=== PATIENT | female | born 1965 | race Caucasian/White ===

== ENCOUNTER → 2020-04-13 13:08 | Outpatient (CLI) | payer OTHER, SELFPAY ==
--- NOTE | ~2020-04-13 | MM_ITS ---
EXAMINATION: MM screening [facility] w [facility] HISTORY: Screening TECHNIQUE: Craniocaudal and mediolateral oblique 3-D tomosynthesis images were obtained and synthetic 2-D images were generated. CAD analysis was submitted and interpreted. COMPARISON: Comparison to multiple prior studies sequentially, with oldest reviewed study dated 12/29. BREAST PARENCHYMAL COMPOSITION: The breasts are extremely dense, which lowers the sensitivity of mamm ography. FINDINGS: There is no evidence of suspicious mass, calcification, or architectural distortion to sugg est malignancy in either breast. There has been no suspicious interval change. IMPRESSION: 1. No mammographic evidence of malignancy. 2. Recommend routine screening mammography in one year. BI-RADS Category 1: Negative Reviewed, dictated and finalized at location A.
== END ==
PROVIDERS: Visit Provider Obstetrics & Gynecology
DX: Z12.31 Encounter for screening mammogram for malignant neoplasm of breast (principal)
CPT/HCPCS: 77063; 77067

== ENCOUNTER 2021-11-14 13:59 | Outpatient (CLI) | payer OTHER, SELFPAY ==
--- NOTE | ~2021-11-14 | NM_ITS ---
EXAMINATION: NM thyroid scan w uptake DATE: 11/15/2021 15:00 INDICATION: Thyrotoxicosis, unspecified without thyrotoxic crisis. COMPARISON: None. TECHNIQUE: 0.341 mCi I-123 was administered orally. Scintigraphic images of the thyroid gland were o btained at 24 hours. Thyroid uptake was calculated by the technologist. FINDINGS: The thyroid uptake is 19% (normal 10-30%), with the right lobe measuring 4% uptake and the left 15%. There is no focal area of decreased or increased activity to suggest hypofunctioning or hyperfunction ing nodule. IMPRESSION: 1. Normal 24-hour iodine uptake. 2. Asymmetric thyroid uptake, left greater than right. Consider correlation with ultrasound. Reviewed, dictated and finalized at location A. IMPRESSION: 1. Normal 24-hour iodine uptake. 2. Asymmetric thyroid uptake, left greater than right. Consider correlation wit h ultrasound.
== END 2021-11-14 14:00 | disposition home or self-care (01) ==
LOC: ANHIMG 14:03
PROVIDERS: PCP Family Medicine; Visit Provider Family Medicine
DX: E05.90 Thyrotoxicosis, unspecified without thyrotoxic crisis or storm (principal)
CPT/HCPCS: 78014; A9516

== ENCOUNTER 2021-11-23 16:01 | Outpatient (CLI) | payer OTHER, SELFPAY ==
--- NOTE | ~2021-11-23 | US_ITS ---
EXAMINATION: US thyroid EXAM DATE: 11/23/2021 17:22 INDICATION: E05.90 - Thyrotoxicosis, unspecified without thyrotoxic c... TECHNIQUE: Multiple grayscale and Doppler images of the thyroid were obtained (by a technologist who performed the scan) and subsequently reviewed. Individual nodules and recommendations may be reporte d in accordance with TI-RADS system as designated by the 2017 ACR White Paper TI-RADS committee. The re is no prior study for comparison. FINDINGS: The right liver lobe measures 4.4 x 1.2 x 1.6 cm, the left measuring 4.4 x 1.6 x 2.2 cm. There is rel atively homogeneous thyroid echogenicity. There are scattered thyroid nodules. There is a left thyroid lobe nodule measuring 3.6 x 2.3 x 2.4, solid (2 points), hypoechoic (2 points ), wider than tall, smooth well defined margin, containing punctate echogenic foci consistent with mi crocalcification (3 points), category TR5 for this nodule. Size and category warrants recommending u ltrasound-guided FNA. There is a right thyroid lobe nodule measuring 1.7 x 0.9 x 1.3 , mixed cystic and solid (1 point), hy poechoic (2 points), wider than tall, smooth well defined margin, without echogenic foci, category TR 3 for this nodule. IMPRESSION: Multinodular goiter; recommend ultrasound-guided FNA of the largest left thyroid lobe nod ule. Reviewed, dictated and finalized at location D. IMPRESSION: Multinodular goiter; recommend ultrasound-guided FNA of the largest left thyroid lobe nodule.
== END 2021-11-23 16:02 | disposition home or self-care (01) ==
LOC: ANHIMG 16:05
PROVIDERS: PCP Family Medicine; Visit Provider Family Medicine
DX: E05.90 Thyrotoxicosis, unspecified without thyrotoxic crisis or storm (principal); E04.2 Nontoxic multinodular goiter
CPT/HCPCS: 76536

== ENCOUNTER 2021-11-30 12:58 | Outpatient (CLI) | payer OTHER, SELFPAY ==
--- NOTE | ~2021-11-30 | US_ITS ---
EXAMINATION: US FNA w image guidance DATE: 11/30/2021 14:25 INDICATION: Nontoxic multinodular goiter TECHNIQUE: A time-out was performed to verify the patient's name, date of , and procedure to be performed . The procedure and its benefits and risks were discussed with the patient. Risks specifically discus sed included bleeding and infection. The patient understood the risks and agreed to proceed. The neck was prepped and draped in the usual sterile manner. 3 mL 1% lidocaine was used for local anesthesia . 6 passes were made with a 25G needle into the lesion. Appropriate needle location was documented with continuous sonographic guidance. The specimens were passed to the reliability technologist in the room. A sterile bandage was applied. There were no immediate complications. FINDINGS: Grayscale ultrasound images demonstrate biopsy needles advanced into a 3.4 x 1.7 x 2.3 cm solid TI RA DS 5 left thyroid mass. IMPRESSION: 1. Successful ultrasound-guided fine needle aspiration of a 3.4 cm TI RADS 5 left thyroid mass. Reviewed, dictated and finalized at location A. IMPRESSION: 1. Successful ultrasound-guided fine needle aspiration of a 3.4 cm TI RADS 5 l eft thyroid mass.
== END 2021-11-30 12:59 | disposition home or self-care (01) ==
PROVIDERS: PCP Family Medicine; Visit Provider Family Medicine
DX: E04.2 Nontoxic multinodular goiter (principal)
CPT/HCPCS: 10005; 88173; 88305

== ENCOUNTER → 2022-02-23 14:05 | Outpatient (CLI) | payer OTHER, SELFPAY ==
--- NOTE | ~2022-02-23 | MM_ITS ---
EXAMINATION: MM screening [facility] BI w [facility] HISTORY: Screening mammogram TECHNIQUE: Craniocaudal and mediolateral oblique 3-D tomosynthesis images were obtained and synthetic 2-D images were generated. CAD analysis was submitted and interpreted. COMPARISON: 04/13/2020, 02/10/2019, 08/29/2017 BREAST PARENCHYMAL COMPOSITION: The breasts are extremely dense, which lowers the sensitivity of mamm ography. FINDINGS: There is no suspicious mass, calcification, or architectural distortion to suggest malignan cy in either breast. There has been no suspicious interval change. IMPRESSION: 1. No mammographic evidence of malignancy. 2. Recommend routine screening mammography in one year. BI-RADS Category 1: Negative Reviewed, dictated and finalized at location A.
== END ==
PROVIDERS: PCP Internal Medicine; Visit Provider Obstetrics & Gynecology
DX: Z12.31 Encounter for screening mammogram for malignant neoplasm of breast (principal)
CPT/HCPCS: 77063; 77067

== ENCOUNTER 2022-07-07 09:32 | Emergency (ER) | payer OTHER, SELFPAY ==
[2022-07-07 09:46] VITALS: BP 138/87; PULSE 78; RESP 16; TEMP 36.9; O2SAT 100
--- NOTE | 2022-07-07 10:03 | ED.URI ---
HPI - URI/Sore Throat General Chief Complaint: Upper Respiratory Infection Stated Complaint: sore throat, headache, cough, runny nose Time Seen by Provider: 07/07/22 09:50 Source: patient Mode of arrival: ambulatory Limitations: no limitations History of Present Illness HPI Narrative: Ru is a 56-year-old female patient presenting to clinic today with complaints of sore throat, headache, cough, runny nose, and chills/body aches. She reports that this started on night. Denies any known exposure to anybody with COVID, flu, or strep. She did take an at-home COVID testing that was negative. MD elicited complaint: sore throat and nasal congestion Related Data Home Medications Medication Instructions Recorded Confirmed trazodone 50 mg tablet 50 mg PO QHS PRN Insomnia 10/23/21 07/07/22 Allergies Allergy/AdvReac Type Severity Reaction Status Date / Time Penicillins Allergy Unknown Unknown Verified 07/07/22 09:42 Sulfa (Sulfonamide Allergy Unknown Unknown Verified 07/07/22 09:42 Antibiotics) Review of Systems Review of Systems: Pertinent positives per HPI. Patient denies any fever, rash, visual changes, dizziness, shortness of breath, chest pain, palpitations, nausea, vomiting, diarrhea, constipation, abdominal pain, or any urinary issues. PMFSH Past Medical History Medical History Encounter for general adult medical examination without abnormal findings Encounter for screening for other metabolic disorders Exercise induced bronchospasm Hyperthyroidism without crisis Screen for colon cancer Screening for thyroid disorder Screening, lipid Family History Family History Other Heart disease Social History Social History Smoking status: Never smoker Second hand tobacco smoke exposure: No Alcohol intake: current Alcohol use details: wine/beer weekly Substance use: never Additional occupation/education comments: Associate Manager Gender identity (if verbalized by the patient): Female Comments At the time of my signature, I reviewed and agree with the nursing past medical, surgical, social, and family history. There is no relevant family history pertinent to the patient complaint. Exam Narrative: General: Well-developed, well nourished, in no apparent distress Head: Normocephalic, atraumatic Eyes: Pupils equally round and reactive to light bilaterally, EOM intact, sclera and conjunctive clear, no discharge, lids normal Ears: TMs intact and dull, ear canals clear, no drainage, grossly hearing normal. Nose: Nares patent, clear nasal discharge, no inflammation, no sinus tenderness. Mouth: Oral pharynx without lesions or masses, good dentition, MMM. Oropharynx red, postnasal drip Neck: Supple, trachea midline, no enlargement of anterior or posterior cervical nodes, no thyroid masses or goiter palpable. Cardio: Regular rate and rhythm, s1 and s2 normal, no murmur appreciated. Resp: Clear to auscultation bilaterally, no rhonchi, rales, wheezing or rubs Course Course Emergency Course: Portions of this record may have been created with voice recognition software. Level of Care: Express Care Visit Vital Signs Vital signs: Vital Signs Temperature 36.9 C 07/07/22 09:46 Pulse Rate 78 07/07/22 09:46 Respiratory Rate 16 07/07/22 09:46 Blood Pressure 138/87 07/07/22 09:46 Pulse Oximetry 100 07/07/22 09:46 Temperature 36.9 C 07/07/22 09:46 Pulse Rate 78 07/07/22 09:46 Respiratory Rate 16 07/07/22 09:46 Blood Pressure 138/87 07/07/22 09:46 Pulse Oximetry 100 07/07/22 09:46 Vital signs reviewed MDM - URI/Sore Throat MDM Narrative Medical decision making narrative: At the time of visit patient is resting comfortably on the exam table. Strep screen and influenza testing was
== END 2022-07-07 10:09 | disposition home or self-care (01) ==
PROVIDERS: Emergency Provider Nurse Practitioner Family
DX: J06.9 Acute upper respiratory infection, unspecified (principal); J02.9 Acute pharyngitis, unspecified; B34.9 Viral infection, unspecified; E05.90 Thyrotoxicosis, unspecified without thyrotoxic crisis or storm
CPT/HCPCS: 87081; 87804; 87880; 99213; G0463

== ENCOUNTER → 2023-06-27 11:52 | Outpatient (CLI) | payer OTHER, SELFPAY ==
--- NOTE | ~2023-06-27 | MM_ITS ---
EXAMINATION: MM screening [facility] BI w [facility] HISTORY: Screening mammogram TECHNIQUE: Craniocaudal and mediolateral oblique 3-D tomosynthesis images were obtained and synthetic 2-D images were generated. CAD analysis was submitted and interpreted. COMPARISON: 02/23/2022, 04/13/2020, 02/10/2019 BREAST PARENCHYMAL COMPOSITION: The breasts are extremely dense, which lowers the sensitivity of mamm ography. FINDINGS: No suspicious mass, calcification, or architectural distortion are identified in either joe ast to suggest malignancy. There has been no suspicious interval change. IMPRESSION: 1. No mammographic evidence of malignancy. 2. Recommend routine screening mammography in one year. BI-RADS Category 1: Negative Reviewed, dictated and finalized at location A. [employer]
== END ==
DX: Z12.31 Encounter for screening mammogram for malignant neoplasm of breast (principal)
CPT/HCPCS: 77063; 77067

== ENCOUNTER 2024-08-20 12:56 | Outpatient (CLI) | payer OTHER, SELFPAY ==
--- NOTE | ~2024-08-20 | MM_ITS ---
EXAMINATION: MM screening [facility] w [facility] HISTORY: Screening TECHNIQUE: Craniocaudal and mediolateral oblique 3-D tomosynthesis images were obtained and synthetic 2-D images were generated. CAD analysis was submitted and interpreted. COMPARISON: Comparison to multiple prior studies sequentially, with oldest reviewed study dated 07/12. BREAST PARENCHYMAL COMPOSITION: Dense: The breasts are extremely dense, which lowers the sensitivity of mammography. FINDINGS: There is no evidence of suspicious mass, calcification, or architectural distortion to sugg est malignancy in either breast. There has been no suspicious interval change. IMPRESSION: 1. No mammographic evidence of malignancy. 2. Recommend routine screening mammography in one year. BI-RADS Category 1: Negative Reviewed, dictated and finalized at location B. TO CHIP FRYER
== END 2024-08-20 12:57 | disposition home or self-care (01) ==
DX: Z12.31 Encounter for screening mammogram for malignant neoplasm of breast (principal)
CPT/HCPCS: 77063; 77067